=== PATIENT | female | born 1960 | race Caucasian/White ===

== ENCOUNTER 2023-06-23 07:47 | Outpatient (CLI) | payer BC, SELFPAY | END 2023-06-23 07:48 | disposition home or self-care (01) | LOC: ANHAUDASC 07:49 | PROVIDERS: Visit Provider Otolaryngology | DX: H90.6 Mixed conductive and sensorineural hearing loss, bilateral (principal); H69.92 Unspecified Eustachian tube disorder, left ear | CPT/HCPCS: 92557; 92567 ==